=== PATIENT | male | born 1995 | race African-American/Black ===

== ENCOUNTER 2016-12-21 16:44 | Emergency (ER) | payer OTHER ==
[2016-12-21 16:51] VITALS: BP 142/75
[2016-12-21] MEDS ORDERED: HYDROCODONE/ACETAMINOPHEN 5-325 MG 6 TAB/DSPK PO PRN (17:17)
[2016-12-21] MEDS ORDERED: PENICILLIN V POTASSIUM 500 MG TABLET PO ONE (17:17)
--- NOTE | 2016-12-21 17:18 | ER Document Report ---
HPI - HPI Patient complains to provider of: dental pain Onset: This morning Onset/Duration: Gradual Quality of pain: Achy Pain Level: 5 Context: Patient complains of dental pain to right lower jaw. Patient states he has appointment tomorrow to have the tooth extracted. Patient states pain has not been relieved with Tylenol or Motrin and he is worried that he might need an antibiotic. Associated Symptoms: Other - dental pain. denies: Fever Exacerbated by: Denies Relieved by: Denies Similar symptoms previously: Yes Recently seen / treated by doctor: No - ROS ROS below otherwise negative: Yes Systems Reviewed and Negative: Yes All other systems reviewed and negative - CONSTITUTIONAL Constitutional: DENIES: Fever - EENT Notes: dental pain - NEURO Neurology: DENIES: Headache - CARDIOVASCULAR Cardiovascular: DENIES: Chest pain - RESPIRATORY Respiratory: DENIES: Coughing - GASTROINTESTINAL Gastrointestinal: DENIES: Nausea, Patient vomiting - MUSCULOSKELETAL Musculoskeletal: DENIES: Neck Pain - DERM Skin Color: Normal Skin Problems: None Past Medical History - General Information source: Patient - Social History Smoking Status: Never Smoker Chew tobacco use (# tins/day): No Frequency of alcohol use: Occasional Drug Abuse: None Family History: Reviewed & Not Pertinent Pulmonary Medical History: Reports: Hx Asthma Neurological Medical History: Reports: Hx Migraine Renal/ Medical History: Denies: Hx Peritoneal Dialysis Psychiatric Medical History: Reports: Hx Anxiety, Hx Depression Surgical Hx: Negative - Immunizations Immunizations up to date: Yes Hx Diphtheria, Pertussis, Tetanus Vaccination: Yes Vertical Provider Document - CONSTITUTIONAL Agree With Documented VS: Yes Exam Limitations: No Limitations - INFECTION CONTROL TRAVEL OUTSIDE OF THE [place] IN LAST 30 DAYS: No - HEENT HEENT: Atraumatic, Normocephalic Mouth Diagram: 1 - Dental fracture, tenderness, no gingival swelling, no trismus, no sublingual or submental swelling - NECK Neck: Normal Inspection, Supple. negative: Lymphadenopathy-Left, Lymphadenopathy-Right - RESPIRATORY Respiratory: Breath Sounds Normal, No Respiratory Distress O2 Sat by Pulse Oximetry: 98 - CARDIOVASCULAR Cardiovascular: Regular Rate, Regular Rhythm - MUSCULOSKELETAL/EXTREMETIES Musculoskeletal/Extremeties: MAEW - NEURO Level of Consciousness: Awake, Alert, Appropriate Motor/Sensory: No Motor Deficit - DERM Integumentary: Warm, Dry Course - Vital Signs Vital signs: Temp Pulse Resp BP Pulse Ox 98.8 F 98 16 142/75 H 98 12/21/16 16:46 12/21/16 16:46 12/21/16 16:46 12/21/16 16:46 12/21/16 16:46 Discharge - Discharge Clinical Impression: Elevated blood pressure reading, Toothache Condition: Stable Disposition: HOME, SELF-CARE Instructions: Oral Narcotic Medication ([facility]), Penicillin V K ([facility]), Toothache ( [facility]) Additional Instructions: Return immediately for any new or worsening symptoms Keep your appointment with your dentist tomorrow as planned Prescriptions: Naproxen [Naprosyn 250 Nmg Tablet] 1 tab PO BID #14 tablet Penicillin V Potassium [Penicillin Vk 500 mg Tablet] 500 mg PO BID #20 tablet Forms: Elevated Blood Pressure
== END 2016-12-21 17:26 | disposition home or self-care (01) ==
LOC: ER 16:44
DX: K08.89 Other specified disorders of teeth and supporting structures (principal); J45.909 Unspecified asthma, uncomplicated; R03.0 Elevated blood-pressure reading, without diagnosis of hypertension
CPT/HCPCS: 99282

== ENCOUNTER 2018-06-03 19:11 | Emergency (ER) | payer SELFPAY ==
[2018-06-03 19:20] VITALS: BP 117/90
--- NOTE | 2018-06-03 19:49 | ER Document Report ---
ED Medical Screen (RME) - General Chief Complaint: Urinary Problem Stated Complaint: URINATION ISSUES Time Seen by Provider: 06/03/18 19:37 Mode of Arrival: Ambulatory Information source: Patient Notes: Patient presents to the emergency department with pain with void and testicular pain. Patient reports he has had the symptoms for the past 2-3 weeks. He reports he is sexually active but he has not had any activity recently. He denies penile discharge. Patient reports he had been evaluated in [place] approximately 1 over a week ago and given a shot for his symptoms. He also reports he had a testicular ultrasound but does not know the results. He just moved here. He reports he did have fever but that was more related to the flu not this. I have greeted and performed a rapid initial assessment of this patient. A comprehensive ED assessment and evaluation of the patient, analysis of test results and completion of the medical decision making process will be conducted by additional ED providers. Dictation of this chart was performed using voice recognition software; therefore, there may be some unintended grammatical errors. TRAVEL OUTSIDE OF THE [place] IN LAST 30 DAYS: No - Related Data Allergies/Adverse Reactions: No Known Allergies Allergy (Verified 12/21/16 16:46) Past Medical History - Social History Chew tobacco use (# tins/day): No Drug Abuse: None Pulmonary Medical History: Reports: Hx Asthma Neurological Medical History: Reports: Hx Migraine Renal/ Medical History: Denies: Hx Peritoneal Dialysis Psychiatric Medical History: Reports: Hx Anxiety, Hx Depression - Immunizations Immunizations up to date: Yes Hx Diphtheria, Pertussis, Tetanus Vaccination: Yes Physical Exam - Vital signs Vitals: Temp Pulse Resp BP Pulse Ox 98.2 F 83 18 117/90 H 97 06/03/18 19:17 06/03/18 19:17 06/03/18 19:17 06/03/18 19:17 06/03/18 19:17 Course - Vital Signs Vital signs: Temp Pulse Resp BP Pulse Ox 98.2 F 83 18 117/90 H 97 06/03/18 19:17 06/03/18 19:17 06/03/18 19:17 06/03/18 19:17 06/03/18 19:17
[2018-06-03 20:59] LABS: APPEARANCE,URINE CLEAR; BILIRUBIN,URINE NEGATIVE (NEGATIVE); COLOR,URINE YELLOW; GLUCOSE, URINE NEGATIVE (NEGATIVE); KETONES,URINE NEGATIVE (NEGATIVE); LEUKOCYTE ESTERASE,URINE NEGATIVE (NEGATIVE); NITRITE,URINE NEGATIVE (NEGATIVE); PROTEIN,URINE NEGATIVE (NEGATIVE); URINE SPECIFIC GRAVITY 1.014
--- NOTE | 2018-06-03 21:24 | RADIOLOGY REPORT (SQ) ---
EXAM DESCRIPTION: US SCROTUM COMPLETED DATE/TME: 06/03/2018 19:46 CLINICAL HISTORY: 23 years, Male, testicular pain COMPARISON: None. TECHNIQUE: LIMITATIONS: None. FINDINGS: There are bilateral varicoceles. There are no focal lesions within the testicles. No evidence of testicular torsion. No evidence of epididymitis. There are small bilateral epididymal cysts. IMPRESSION: Bilateral varicoceles. copyright 2010 [employer]- All Rights Reserved
[2018-06-03 22:22] LABS: CHLAM PCR NOT DETECTED (NOT DETECT); GON PCR NOT DETECTED (NOT DETECT)
--- NOTE | 2018-06-03 22:23 | ER Document Report ---
HPI - HPI Time Seen by Provider: 06/03/18 19:37 Pain Level: 2 Context: Patient is a 23 year-old male who presents to the emergency department with testicular pain and pain when urinating. He has had the symptoms for the past 2-3 weeks. Denies any trauma to the area. Patient is sexually active, but he has not had any sex recently. Denies penile discharge. Patient has just moved from [place], where he was treated for gonorrhea and chlamydia. He also had an ultrasound done at that time, but does not know what the results showed. He admits to having a fever at home, but states he also had the flu like symptoms recently. He does not think his fever is related to his testicular pain. He has not seen a primary care provider for this issue. - CONSTITUTIONAL Constitutional: REPORTS: Fever - NEURO Neurology: DENIES: Weakness - RESPIRATORY Respiratory: DENIES: Trouble Breathing - GASTROINTESTINAL Gastrointestinal: DENIES: Abdominal Pain - URINARY Urinary: REPORTS: Dysuria - REPRODUCTIVE Notes: Testicular pain Past Medical History - General Information source: Patient - Social History Smoking Status: Current Some Day Smoker Chew tobacco use (# tins/day): No Drug Abuse: None Family History: Reviewed & Not Pertinent Patient has suicidal ideation: No Patient has homicidal ideation: No Pulmonary Medical History: Reports: Hx Asthma Neurological Medical History: Reports: Hx Migraine Renal/ Medical History: Denies: Hx Peritoneal Dialysis Psychiatric Medical History: Reports: Hx Anxiety, Hx Depression - Immunizations Immunizations up to date: Yes Hx Diphtheria, Pertussis, Tetanus Vaccination: Yes Vertical Provider Document - CONSTITUTIONAL Agree With Documented VS: Yes Exam Limitations: No Limitations General Appearance: No Apparent Distress, Thin - INFECTION CONTROL TRAVEL OUTSIDE OF THE [place] IN LAST 30 DAYS: No - HEENT HEENT: Atraumatic - NECK Neck: Normal Inspection - RESPIRATORY Respiratory: No Respiratory Distress - CARDIOVASCULAR Cardiovascular: Regular Rate, Regular Rhythm Pulses: Normal: Radial - GI/ABDOMEN Gastrointestinal: Abdomen Soft - MUSCULOSKELETAL/EXTREMETIES Musculoskeletal/Extremeties: FROM - NEURO Level of Consciousness: Awake, Alert, Appropriate Motor/Sensory: No Motor Deficit - DERM Integumentary: Warm, Dry Course - Re-evaluation Re-evalutation: 06/03/18 21:00 I have received report from Sherry Ruiz NP. Awaiting results of the patient's scrotal ultrasound. Based off of patient's history, I have a very low suspicion for testicular torsion. 06/03/18 23:15 The patient's ultrasound shows he has bilateral varicoceles. I have discussed the results with the patient. I have advised him to wear tighter fitting underwear to help with his varicoceles. His urinalysis is unremarkable and his gonorrhea and chlamydia tests are negative. He will take motrin and tylenol at home for pain management. Verbal discharge instructions were given to the patient. They verbalized understanding. They are stable for discharge. - Vital Signs Vital signs: Temp Pulse Resp BP Pulse Ox 98.2 F 83 18 117/90 H 97 06/03/18 19:17 06/03/18 19:17 06/03/18 19:17 06/03/18 19:17 06/03/18 19:17 - Laboratory Laboratory results interpreted by me: 06/03/18 19:55 Urine Urobilinogen 2.0 H Discharge - Discharge Clinical Impression: Bilateral varicoceles Condition: Stable Disposition: HOME, SELF-CARE Additional Instructions: You were seen in the emergency department for testicular pain. The ultrasound shows that you have varicoceles, which is when the veins in your scrotum become inflamed. You can take ibuprofen 600 mg and Tylenol 1000 mg every 6 hours as needed for your pain. Please wear underwear that is a little tighter to help with the fluid. If you have any worsening symptoms, please return to the emergency department.
== END 2018-06-03 22:37 | disposition home or self-care (01) ==
LOC: ER 19:11
DX: I86.1 Scrotal varices (principal); R50.9 Fever, unspecified; R30.0 Dysuria; N50.819 Testicular pain, unspecified; F17.200 Nicotine dependence, unspecified, uncomplicated; J45.909 Unspecified asthma, uncomplicated
CPT/HCPCS: 76870; 81001; 87491; 87591; 93976; 99284

== ENCOUNTER 2018-06-23 16:34 | Emergency (ER) | payer SELFPAY ==
[2018-06-23 16:55] VITALS: BP 137/68
--- NOTE | 2018-06-23 19:36 | ER Document Report ---
ED Medical Screen (RME) - General Chief Complaint: Urinary Problem Stated Complaint: TESTICULAR PAIN Time Seen by Provider: 06/23/18 19:29 Mode of Arrival: Ambulatory Information source: Patient Notes: 23-year-old male presents to ED for complaint of testicular pain times a month. He states he was seated here a month ago and had an ultrasound that was negative. He states he is waking up with sweating and now has developed black spots on his testicles times a month. His GC chlamydia and ultrasound were negative last month. He states he has not been sexually active with anybody since he got out of senior care in April. I have greeted and performed a rapid initial assessment of this patient. A comprehensive ED assessment and evaluation of the patient, analysis of test results and completion of medical decision making process will be conducted by an additional ED providers. TRAVEL OUTSIDE OF THE [place] IN LAST 30 DAYS: No - Related Data Allergies/Adverse Reactions: No Known Allergies Allergy (Verified 06/23/18 16:36) Past Medical History Pulmonary Medical History: Reports: Hx Asthma Neurological Medical History: Reports: Hx Migraine Renal/ Medical History: Denies: Hx Peritoneal Dialysis Psychiatric Medical History: Reports: Hx Anxiety, Hx Depression - Immunizations Immunizations up to date: Yes Hx Diphtheria, Pertussis, Tetanus Vaccination: Yes Physical Exam - Vital signs Vitals: Temp Pulse Resp BP Pulse Ox 99.3 F 95 17 137/68 H 96 06/23/18 16:55 06/23/18 16:55 06/23/18 16:55 06/23/18 16:55 06/23/18 16:55 Course - Vital Signs Vital signs: Temp Pulse Resp BP Pulse Ox 99.3 F 95 17 137/68 H 96 06/23/18 16:55 06/23/18 16:55 06/23/18 16:55 06/23/18 16:55 06/23/18 16:55
== END 2018-06-24 01:11 | disposition left against medical advice (07) ==
LOC: ER 16:34
DX: N50.819 Testicular pain, unspecified (principal)
CPT/HCPCS: 36415; 86592